=== PATIENT | male | born 1985 | race Caucasian/White ===

== ENCOUNTER 2024-06-01 18:07 | Emergency (ER) | payer BC, OTHER ==
[~2024-06-01] VITALS: Ht 177.8 cm; Wt 79.1 kg
[~2024-06-01 18:07] MED LIST: NORCO 10-325 T1 EACH PO; NORCO 5-325 TA1 EACH PO
[2024-06-01] MEDS ORDERED: TRIAMCINOLONE ACET 40 MG/ML VIAL 1 ML IAARTIC ONE (20:30)
[2024-06-01] MEDS ORDERED: methylPREDNISolone 4 MG HOME.PACK PO ONE (21:00)
[2024-06-01 21:18] VITALS: BP 127/71
== END 2024-06-01 21:21 | disposition home or self-care (01) ==
LOC: ED 18:07
DX: M70.21 Olecranon bursitis, right elbow (principal); F17.200 Nicotine dependence, unspecified, uncomplicated
CPT/HCPCS: 20605; 99283-25; J3301